=== PATIENT | male | born 1985 | race Caucasian/White ===

== ENCOUNTER 2020-11-06 20:54 | Emergency (ER) | payer SELFPAY ==
[2020-11-06 20:54] VITALS: BP 153/110; PULSE 115; RESP 18; TEMP 36.9; O2SAT 98; BMI 21.7
[2020-11-06] MEDS: lidocaine 1% INJ 20 mL 5 ML INTRADERMA (21:12)
[2020-11-06] MEDS: HYDROcodone-acetaminophen 7.5-325 mg Tablet 1 TAB PO (21:36)
[2020-11-06] MEDS: cephALEXin 500 mg Capsule PO (21:36)
[2020-11-06 21:45] VITALS: BP 126/105; PULSE 94; RESP 16; O2SAT 98
--- NOTE | 2020-11-06 23:33 | W.ED.WOUNDLC ---
HPI - Wound/Laceration General: Chief Complaint: Wound/Laceration Stated Complaint: right forearm lac Time Seen by Provider: 11/06/20 21:05 History of Present Illness: HPI narrative: Patient was using machete to cut down some cedar limbs. And he cut his right arm with the tip of the machete when he leaned forward. Had active bleeding at that time presents ER without active bleeding has tenderness to the right forearm. Onset (ago): minute(s) Extremity Location: Right: arm Place: home Patient tetanus UTD: Yes Context: accidental Associated symptoms: Reports no associated symptoms; Denies chills or fever(s) Treatments prior to arrival: bandage Review of Systems Const: Denies: fever(s) or chills Skin/Breast: Reports: other (Laceration right arm from a machete wound this evening) Psych: Denies: depression Physical Exam Const: COMMON NORMALS: no acute distress Psych: COMMON NORMALS: mental status grossly normal Skin: OTHER: Patient is a 3 inch laceration to his right forearm just 2 inches below with the bend of the elbow on the lateral aspect there is a large blood clot in it. Patient is able to move all extremities fingers in flexion and extension without difficulty. Does have tenderness to the belly of the muscle. Procedures Laceration Laceration 1: Site: upper extremity Side (If applicable): right Size (cm): 8 Description: irregular and clean Depth: involves muscle layer Local Anesthetic: lidocaine 1% Amount of anesthesia used (mL): 5 Pre-repair: wound explored, irrigated extensively and deep structures intact Skin layer closed with: vicryl Size (cm): 3-0 Number of sutures: 15 Technique: simple, interrupted Course Vital Signs: Vital signs: Vital Signs Temperature 98.4 F 11/06/20 20:54 Pulse Rate 94 11/06/20 21:45 Respiratory Rate 16 11/06/20 21:45 Blood Pressure 126/105 11/06/20 21:45 Pulse Oximetry 98 11/06/20 21:45 MDM - Wound/Laceration MDM Narrative: Medical decision making narrative: Patient is able to move all extremities distal aspect of the right forearm without problem good movement of fingers muscle did appear to be cut did have a hematoma in the wound itself but no active bleeding was closed without difficulty left slightly loose to allow for any drainage. Patient was placed on antibiotics was told to follow-up with his primary care to see if he might possibly need a referral if any problems occur. Discharge Plan Discharge Patient Disposition: Home Clinical Impression: Laceration Condition: Stable Prescriptions: New cephalexin 500 mg capsule 500 mg PO Q8H 7 Days Qty: 21 RF: 0 Discharge Orders: Discharge ED (Routine); Ordered 11/06/20 Ordered By: Arvind Mcdaniel Discharge Diet: Usual diet Discharge Activity: Increase activity as tolerated Patient Instructions: Suture Care (ED), Laceration (ED) Activity Restrictions/Additional Instructions: Follow-up with medical provider as directed. Take medications as prescribed. Return to the ER or your medical provider if condition worsens. Please read and understand discharge instructions. If any questions ask please. Get sutures removed in 7 days. Watch for signs and symptoms of infection. Can take Tylenol and/or ibuprofen for discomfort. Can apply ice to help with discomfort. 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
== END 2020-11-06 21:47 | disposition home or self-care (01) ==
LOC: ER 22:56
PROVIDERS: Emergency Provider Nurse Practitioner Family
DX: S51.811A Laceration without foreign body of right forearm, initial encounter (principal); W26.0XXA Contact with knife, initial encounter
CPT/HCPCS: 12004; 99283

== ENCOUNTER 2021-07-18 02:51 | Inpatient (IN) | payer SELFPAY ==
[2021-07-18 03:02] VITALS: BP 160/108; PULSE 116; RESP 18; TEMP 36.7; O2SAT 99; BMI 23.7
--- NOTE | 2021-07-18 03:06 | ED_ITS ---
HPI - Wound/Laceration General: Chief Complaint: Wound/Laceration Stated Complaint: open sore on LT hand Time Seen by Provider: 07/18/21 03:02 Source: patient Mode of arrival: ambulatory Limitations: no limitations History of Present Illness: 36-year-old male states that he had a wound to his left palm over the last 4 to 5 days he states he hit it today and opened it up and he has been having increasing redness and pain he stopped she also had redness going up his arm. He denies any fever he is afebrile here denies any drug use. Denies any worst improving factors denies any drainage. Associated symptoms: Denies chills, fever(s), nausea or vomiting Review of Systems Const: Denies: fever(s), chills, body aches or change in appetite Eyes: Denies: blurry vision or eye discomfort ENMT: Denies: throat pain or dental pain Card: Denies: chest pain Resp: Denies: dyspnea GI: Denies: abdominal pain, nausea, vomiting or diarrhea : Denies: dysuria Musc: Denies: neck pain or back pain Skin/Breast: Reports: erythema and sores Neuro: Denies: headache(s) Psych: Denies: depression Warner/Lymph: Denies: easy bruising All/Imm: Denies: urticaria Physical Exam Const: COMMON NORMALS: patient oriented x3 and healthy appearing HENMT: COMMON NORMALS: normocephalic and atraumatic HEAD & SCALP: normocephalic and atraumatic Eye: COMMON NORMALS: Equal, round and reactive pupils present and EOMs intact bilaterally PUPIL: Yes Equal, round and reactive pupils present Neck/C-Spine: COMMON NORMALS: full ROM and supple Chest: COMMONS NORMALS: normal inspection of the chest and normal palpation of entire chest wall Resp: COMMON NORMALS: normal respiratory effort, No retractions, No use of accessory muscles and clear to auscultation bilaterally AUSCULTATION: clear to auscultation bilaterally Cardio: COMMON NORMALS: regular rate, regular rhythm and No murmurs present (Cardio) RATE: regular rate RHYTHM: regular rhythm GI: COMMON NORMALS: Normal to inspection, nondistended, normoactive bowel sounds present, Soft to palpation, non-tender and no masses PALPATION: Yes Soft to palpation Extremity: COMMON NORMALS: normal to inspection and full ROM Neuro: COMMON NORMALS: patient oriented x3, moves all extremities and no focal motor deficits Psych: COMMON NORMALS: mental status grossly normal, Normal thought process present and cooperative THOUGHT PROCESS: Normal thought process present Skin: NARRATIVE SKIN EXAM: Wound to the left palmar surface with erythema along with streaking up to his armpit Course Vital Signs: Vital signs: Vital Signs Temperature 98.1 F 07/18/21 03:02 Pulse Rate 116 H 07/18/21 03:02 Respiratory Rate 18 07/18/21 03:02 Blood Pressure 160/108 07/18/21 03:02 Pulse Oximetry 99 07/18/21 03:02 MDM - Wound/Laceration Medical Decision Making Patient presents here with cellulitis with a going up his arm. Patient's been seen here by hospitalist Dr. Nina will admit patient given IV antibiotics for cellulitis. Lab Data : 07/18/21 03:15 07/18/21 03:15 Laboratory Results WBC 15.8 10^3/uL (4.0-10.0) H 07/18/21 03:15 RBC 5.05 10^6/uL (4.1-5.3) 07/18/21 03:15 Hgb 15.1 g/dL (11.7-16.6) 07/18/21 03:15 Hct 44.7 % (42.0-52.0) 07/18/21 03:15 MCV 88.5 fl (80-94) 07/18/21 03:15 MCH 29.9 pg (28.0-34.0) 07/18/21 03:15 MCHC 33.8 g/dL (30.0-36.0) 07/18/21 03:15 RDW 13.0 % (12.1-15.1) 07/18/21 03:15 Plt Count 260 10^3/cmm (130-400) 07/18/21 03:15 MPV 10.1 fL (7.4-10.4) 07/18/21 03:15 Neut % (Auto) 75.6 % 07/18/21 03:15 Lymph % (Auto) 14.2 % 07/18/21 03:15 [place] % (Auto) 8.6 % 07/18/21 03:15 Eos % (Auto) 0.8 % 07/18/21 03:15 Baso % (Auto) 0.4 % 07/18/21 03:15 Neut # (Auto) 11.95 10^3/uL (1.8-7.7) H 07/18/21 03:15 Lymph # (Auto) 2.2 10^3/uL (0.8-4.8) 07/18/21 03:15 [place] # (Auto) 1.4 10^3/uL (0.2-0.9) H 07/18/21 03:15 Eos # (Auto) 0.1 10^3/uL (0.0-0.8) 07/18/21 03:15 Baso # (Auto) 0.1 10^3/uL (0.0-0.1) 07/18/21 03:15 Nucleated RBC % (auto) 0 % 07/18/21 03:15 Nucleated RBCs # 0.0 /100WBC 07/18/21 03:15 Sodium 137 mmol/L (136-145) 07/18/21 03:15 Potassium 3.6 mmol/L (3.5-5.1) 07/18/21 03:15 Chloride 100 mmol/L (98-107) 07/18/21 03:15 Carbon Dioxide 27 mmol/L (22-29) 07/18/21 03:15 Anion Gap 13.6 (5-19) 07/18/21 03:15 BUN 16 mg/dL (6-20) 07/18/21 03:15 Creatinine 1.2 mg/dL (0.7-1.2) 07/18/21 03:15 Glucose 105 mg/dL (65-115) 07/18/21 03:15 Calculated Osmolality 286 mOsm/kg (285-295) 07/18/21 03:15 Calcium 9.6 mg/dL (8.5-10.5) 07/18/21 03:15 Total Bilirubin 0.9 mg/dL (0.15-1.2) 07/18/21 03:15 AST 22 U/L (0-40) 07/18/21 03:15 ALT 22 U/L (0-41) 07/18/21 03:15 Alkaline Phosphatase 71 IU/L (40-130) 07/18/21 03:15 Total Protein 7.6 g/dL (6.6-8.7) 07/18/21 03:15 Albumin 4.8 g/dL (3.5-5.2) 07/18/21 03:15 Globulin 2.8 g/dL (1.3-4.6) 07/18/21 03:15 Discharge Plan Discharge Patient Disposition: Admitted As Inpatient Clinical Impression: Cellulitis of left hand Condition: Stable Coding Level of Care Code ED Cost Estimator for Sofía Fwd Exam Comprehensive
--- NOTE | 2021-07-18 03:08 | XRR_ITS ---
PROCEDURE INFORMATION: Exam: XR Left Hand Exam date and time: 07/18/2021 3:08 AM Age: 36 years old Clinical indication: Pain; Mass or lump; Hand; Left; Patient HX: Open sore/wound to proximal aspect of first metacarpal along lateral border. ; Additional info: Injury TECHNIQUE: Imaging protocol: XR Left hand. Views: 3 or more views. COMPARISON: No relevant prior studies available. FINDINGS: Bones/joints: Normal. Soft tissues: Normal. XR/XR hand LT min 3V* [id number] IMPRESSION: No acute findings.
[2021-07-18 03:25] LABS: Basophils # 0.1 10^3/uL (0.0-0.1); Basophils % 0.4 %; Eosinophils # 0.1 10^3/uL (0.0-0.8); Eosinophils % 0.8 %; Hematocrit 44.7 % (42.0-52.0); Hemoglobin 15.1 g/dL (11.7-16.6); Lymphocytes # 2.2 10^3/uL (0.8-4.8); Lymphocytes % 14.2 %; Mean Corpuscular HGB Conc 33.8 g/dL (30.0-36.0); Mean Corpuscular Hemoglobin 29.9 pg (28.0-34.0); Mean Corpuscular Volume 88.5 fl (80-94); Mean Platelet Volume 10.1 fL (7.4-10.4); Monocytes # 1.4 10^3/uL (0.2-0.9); Monocytes % 8.6 %; Neutrophils # 11.95 10^3/uL (1.8-7.7); Neutrophils % 75.6 %; Nucleated Red Blood Cells % 0 %; Platelet Count 260 10^3/cmm (130-400); Red Blood Count 5.05 10^6/uL (4.1-5.3); White Blood Count 15.8 10^3/uL (4.0-10.0)
[2021-07-18] MEDS: tetanus-dipt-pertussis 0.5 mL SDV IM (03:29)
[2021-07-18] MEDS: vancomycin 1,000 MG in sodium chloride 0.9% 250 ML 250 MG IV (03:31)
[2021-07-18 03:46] LABS: Alanine Aminotransferase 22 U/L (0-41); Albumin Level 4.8 g/dL (3.5-5.2); Alkaline Phosphatase 71 IU/L (40-130); Anion Gap 13.6 (5-19); Aspartate Amino Transferase 22 U/L (0-40); Blood Urea Nitrogen 16 mg/dL (6-20); Calcium 9.6 mg/dL (8.5-10.5); Carbon Dioxide 27 mmol/L (22-29); Chloride 100 mmol/L (98-107); Globulin 2.8 g/dL (1.3-4.6); Glomerular Filtration Rate 68.5 mL/min (90-130); Glucose 105 mg/dL (65-115); Osmolality Calculated 286 mOsm/kg (285-295); Potassium 3.6 mmol/L (3.5-5.1); Sodium 137 mmol/L (136-145); Total Bilirubin 0.9 mg/dL (0.15-1.2); Total Protein 7.6 g/dL (6.6-8.7)
--- NOTE | 2021-07-18 03:52 | P.HP_ITS ---
Providers/Chief Complaint Admitting Physician: Linda Nina MD Chief Complaint: open sore on LT hand History of Present Illness Polo Santacruz is a 36 year old male without known medical comorbidities presenting with wound over left wrist, now developing signs of lymphangitis/cellulitis. States he noticed a sore over ulnar aspect of his left hand 2 days ago, not sure how it started, denies any obvious trauma at site. Today while working on a car he thought he may have scratched his hand, and started to notice changes of red streaks moving up his left arm along with increased pain at site of sore. He has a pet dog, does not recall any obvious bite however states dog scratches him often. Denies any h/o IVDU to me, however does appear to have track payan over his left arm. urine drug screen currently pending. No h/o herpes. No fever, chills, blood cx taken and pending. CXR without any noted foreign bodies. No h/o gardening. Review of Systems General: Reports: 10 or more systems reviewed and unremarkable except in HPI and below Const: Denies: fever(s), chills or body aches Eyes: Denies: change in vision, blurry vision or photophobia ENMT: Reports: hoarseness; Denies: throat pain, enlarged tonsils, odynophagia or nasal congestion Card: Denies: chest pain, palpitations, irregular heart rhythm, edema, swelling of feet/ankles, lightheadedness, pre-syncope, dyspnea on exertion or orthopnea Resp: Denies: dyspnea, productive cough, non-productive cough, wheezing, stridor, pain on inspiration, change in phlegm color, hemoptysis or chest congestion GI: Denies: abdominal pain, nausea, vomiting, hematemesis, coffee ground emesis, dysphagia, heartburn, diarrhea, constipation, GI cramping, change in stool character, hematochezia or melena : Denies: flank pain, dysuria, urinary frequency, urinary urgency, urinary hesitancy or hematuria Musc: Denies: neck pain, back pain, extremity pain, joint swelling, joint warmth or deformity Neuro: Denies: headache(s), numbness in extremities, weakness in extremities, sensory changes, difficulty walking, frequent falls, dizziness, vertigo, behavioral changes, Slurred speech present or seizure-like activity Psych: Denies: anxiety, depression, suicidal ideation or homicidal ideation Endo: Denies: polyuria, polydipsia, tired all the time, cold intolerance or hot flashes Warner/Lymph: Denies: easy bruising or easy bleeding Medications/Allergies Allergies Allergy/AdvReac Type Severity Reaction Status Date / Time No Known Allergies Allergy Verified 11/06/20 21:12 Vitals/I&O/Wt Last Vital Signs Temp 98.1 F 07/18/21 03:02 Pulse 116 H 07/18/21 03:02 Resp 18 07/18/21 03:02 BP 160/108 07/18/21 03:02 Pulse Ox 99 07/18/21 03:02 Weight last 48 hrs Weight 81.647 kg Physical Exam Narrative: GEN: Awake, alert and oriented, no acute distress CVS: S1S2 N RS: CTA B/L all areas Abd: Soft, nt/nd , bs+ ACCESS REGISTRAR: no focal neuro deficits Data : 07/18/21 03:15 07/18/21 03:15 Micro: Microbiology 07/18/21 03:32 Blood Culture - Preliminary Blood SPECIMEN COLLECTED 07/18/21 03:15 Blood Culture - Preliminary Blood SPECIMEN COLLECTED Other data: Launch?[employer] [place] [address] XRay Report Signed Patient: Polo Santacruz Unit #: [id number] : 1985 Age/Sex: 36 / M ADM Date: 07/18/21 Loc: ER Room/Bed: Attending Dr: Ordering Provider/Ordering MD: Dakota Bruce MD Date of Service: 07/18/21 Procedure(s): XR hand LT min 3V* [id number] Accession Number(s): [id number] Report Number: [id number] PROCEDURE INFORMATION: Exam: XR Left Hand Exam date and time: 07/18/2021 3:08 AM Age: 36 years old Clinical indication: Pain; Mass or lump; Hand; Left; Patient HX: Open sore/wound to proximal aspect of first metacarpal along lateral border. ; Additional info: Injury TECHNIQUE: Imaging protocol: XR Left hand. Views: 3 or more views. COMPARISON: No relevant prior studies available. FINDINGS: Bones/joints: Normal. Soft tissues: Normal. XR/XR hand LT min 3V* [id number] IMPRESSION: No acute findings. A&P Assessment and plan (1) Cellulitis of left hand: Status: Acute (2) Ascending lymphangitis: Status: Acute Plan Presenting with ulceration over left wrist over ulnar aspect, now with signs of cellulitis/ascending lymphangitis over left arm. Warm, erythematous extremity. Admit to med/surg Started on vancomycin blood cx taken prior to starting abx Additionally will add Zosyn for gram negative coverage given h/o animal scratches over the area. Denies IVDU, however noted track payan over B/L arms. Urine drug screen pending. 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
[2021-07-18] MEDS: nicotine 21 mg Patch 1 PATCH TRANSDERMA (04:00)
--- NOTE | 2021-07-18 04:06 | PC.PHAR ---
Vancomycin is dosed at 1500mg IVPB every 12 hours to produce a predicted trough level of 15.68 (population based pharmacokinetic analysis). A trough level has been ordered from the lab to be obtained before the fourth dose to confirm and adjust iv needed.
[2021-07-18 04:17] VITALS: BP 123/85; PULSE 94; O2SAT 96; BMI 24.0
[2021-07-18] MEDS: piperacillin-tazobactam 3.375 GM in sodium chloride 0.9% (100 ml) 100 ML IV (05:07)
[2021-07-18 07:19] VITALS: BP 151/78; PULSE 100; RESP 18; TEMP 37.2; O2SAT 98
[2021-07-18] MEDS: vancomycin 1,500 MG/300 ML PIGGYBACK 150 MG IV (08:12)
[2021-07-18] MEDS: pantoprazole DR 40 mg Tablet PO (08:12)
[2021-07-18 08:57] LABS: Amphetamines Screen Urine Positive (Negative); Barbiturates Screen Urine Negative (Negative); Benzodiazepines Screen Urine Negative (Negative); Cocaine Screen Urine Negative (Negative); Opiate Screen Urine Positive (Negative); PCP Screen Urine Negative (Negative); THC Screen Urine Positive (Negative)
[2021-07-18 11:37] VITALS: BP 125/75; PULSE 96; RESP 16; TEMP 36.8; O2SAT 98
[2021-07-18 11:49] LABS: Iron 21 ug/dL (59-158); Percent Saturation 9.4 % (20-50); Total Iron Binding Capacity 223 mcg/dl; Unsaturated Iron Binding 202 ug/dL (112-347)
[2021-07-18 12:02] LABS: Estmated Average Glucose 100; Hemoglobin A1C 5.1 % (4.0-6.0)
[2021-07-18] MEDS: piperacillin-tazobactam 3.375 GM in sodium chloride 0.9% (plus) 50 ML IV (12:53)
--- NOTE | 2021-07-18 13:38 | PM.MISC ---
Miscellaneous Note Purpose of Documentation: Short progress note Note: Patient seen today morning laying in bed comfortably. Life partner bedside. Initially patient hesitant to stay in the hospital and wants to leave. Discussed that patient needs IV antibiotics for at least 24 more hours before can be sent home. Follow blood cultures. Continue with vancomycin and Zosyn. MRSA swab. Urine drug screen positive for amphetamines. Repeat a.m. labs. Plan for discharge the next 24 hours likely on oral Augmentin and Levaquin. Care discussed in detail with the patient. He is agreeable to stay.
[2021-07-18 14:56] VITALS: BP 126/90; PULSE 98; RESP 16; TEMP 36.9; O2SAT 96
--- NOTE | 2021-07-18 18:28 | PM.DCS ---
Discharge Providers Date of Admission: 07/18/21 03:48 Date of Discharge: July 18, 2021 Attending Provider at Admission: Linda Nina MD Attending Provider at Discharge: Santiago Gamez MD Diagnoses at Discharge Discharge Diagnosis (1) Cellulitis of left hand: Status: Acute (2) Ascending lymphangitis: Status: Acute Reason for Visit Reason for Visit: open sore on LT hand Brief History: As per HPI Polo Santacruz is a 36 year old male without known medical comorbidities presenting with wound over left wrist, now developing signs of lymphangitis/cellulitis. States he noticed a sore over ulnar aspect of his left hand 2 days ago, not sure how it started, denies any obvious trauma at site. Today while working on a car he thought he may have scratched his hand, and started to notice changes of red streaks moving up his left arm along with increased pain at site of sore. He has a pet dog, does not recall any obvious bite however states dog scratches him often. Denies any h/o IVDU to me, however does appear to have track payan over his left arm. urine drug screen currently pending. No h/o herpes. No fever, chills, blood cx taken and pending. CXR without any noted foreign bodies. No h/o gardening. Hospital Course Hospital Course Patient was admitted to hospital for management of cellulitis. He was started on broad spectrum of Abx. Bcx were taken. Utox was positive for amphetamines, marijuana and opiates. Patient was feeling better by next morning and was insistent on being discharged. He was counseled multiple times to in hospital for atleast 24 to 48 hrs of IV Abx and Bcx follow up but he was adamant of being send home so he is leaving [facility]. Oral antibiotics have been send over for next 7 days. Danger signs have been discussed with him in detail. Physical Exam Narrative: GEN: Awake, alert and oriented, no acute distress CVS: S1S2 N RS: CTA B/L all areas Abd: Soft, nt/nd , bs+ SALES OUTFITTER: no focal neuro deficits Discharge Data Studies Completed and Pending Completed Studies During Hospitalization Category Date Time Status XR hand LT min 3V* [id number] Stat Exams 07/18/21 03:08 Completed Pending at discharge Category Date Time Status Blood Culture Stat Lab 07/18/21 03:32 Results Complete Blood Count w/Auto AM LABS Lab 07/19/21 04:00 Ordered Comprehensive Metabolic Panel AM LABS Lab 07/19/21 04:00 Ordered MRSA by PCR Routine Lab 07/18/21 11:26 Uncollected Vancomycin Trough Timed Lab 07/19/21 20:00 Ordered Radiology Impressions Hand X-Ray 07/18/21 03:08 IMPRESSION: No acute findings. Laboratory Results WBC 15.8 10^3/uL (4.0-10.0) H 07/18/21 03:15 RBC 5.05 10^6/uL (4.1-5.3) 07/18/21 03:15 Hgb 15.1 g/dL (11.7-16.6) 07/18/21 03:15 Hct 44.7 % (42.0-52.0) 07/18/21 03:15 MCV 88.5 fl (80-94) 07/18/21 03:15 MCH 29.9 pg (28.0-34.0) 07/18/21 03:15 MCHC 33.8 g/dL (30.0-36.0) 07/18/21 03:15 RDW 13.0 % (12.1-15.1) 07/18/21 03:15 Plt Count 260 10^3/cmm (130-400) 07/18/21 03:15 MPV 10.1 fL (7.4-10.4) 07/18/21 03:15 Neut % (Auto) 75.6 % 07/18/21 03:15 Lymph % (Auto) 14.2 % 07/18/21 03:15 [place] % (Auto) 8.6 % 07/18/21 03:15 Eos % (Auto) 0.8 % 07/18/21 03:15 Baso % (Auto) 0.4 % 07/18/21 03:15 Neut # (Auto) 11.95 10^3/uL (1.8-7.7) H 07/18/21 03:15 Lymph # (Auto) 2.2 10^3/uL (0.8-4.8) 07/18/21 03:15 [place] # (Auto) 1.4 10^3/uL (0.2-0.9) H 07/18/21 03:15 Eos # (Auto) 0.1 10^3/uL (0.0-0.8) 07/18/21 03:15 Baso # (Auto) 0.1 10^3/uL (0.0-0.1) 07/18/21 03:15 Nucleated RBC % (auto) 0 % 07/18/21 03:15 Nucleated RBCs # 0.0 /100WBC 07/18/21 03:15 Sodium 137 mmol/L (136-145) 07/18/21 03:15 Potassium 3.6 mmol/L (3.5-5.1) 07/18/21 03:15 Chloride 100 mmol/L (98-107) 07/18/21 03:15 Carbon Dioxide 27 mmol/L (22-29) 07/18/21 03:15 Anion Gap 13.6 (5-19) 07/18/21 03:15 BUN 16 mg/dL (6-20) 07/18/21 03:15 Creatinine 1.2 mg/dL (0.7-1.2) 07/18/21 03:15 GFR Calculation 68.5 mL/min (90-130) L 07/18/21 03:15 Glucose 105 mg/dL (65-115) 07/18/21 03:15 Estimat Average Glucose 100 07/18/21 03:15 Hemoglobin A1c 5.1 % (4.0-6.0) 07/18/21 03:15 Calculated Osmolality 286 mOsm/kg (285-295) 07/18/21 03:15 Calcium 9.6 mg/dL (8.5-10.5) 07/18/21 03:15 Iron 21 ug/dL (59-158) L 07/18/21 03:15 TIBC 223 mcg/dl 07/18/21 03:15 % Saturation 9.4 % (20-50) L 07/18/21 03:15 Unsat Iron Binding 202 ug/dL (112-347) 07/18/21 03:15 Total Bilirubin 0.9 mg/dL (0.15-1.2) 07/18/21 03:15 AST 22 U/L (0-40) 07/18/21 03:15 ALT 22 U/L (0-41) 07/18/21 03:15 Alkaline Phosphatase 71 IU/L (40-130) 07/18/21 03:15 Total Protein 7.6 g/dL (6.6-8.7) 07/18/21 03:15 Albumin 4.8 g/dL (3.5-5.2) 07/18/21 03:15 Globulin 2.8 g/dL (1.3-4.6) 07/18/21 03:15 Urine Opiates Screen Positive ng/mL (Negative) H 07/18/21 08:32 Ur Barbiturates Screen Negative ng/mL (Negative) 07/18/21 08:32 Ur Phencyclidine Scrn Negative ng/mL (Negative) 07/18/21 08:32 Ur Amphetamines Screen Positive ng/mL (Negative) H 07/18/21 08:32 U Benzodiazepines Scrn Negative ng/mL (Negative) 07/18/21 08:32 Urine Cocaine Screen Negative ng/mL (Negative) 07/18/21 08:32 U Marijuana (THC) Screen Positive ng/mL (Negative) H 07/18/21 08:32 Vitals Last Vital Signs Temp 98.4 F 07/18/21 14:56 Pulse 98 07/18/21 14:56 Resp 16 07/18/21 14:56 BP 126/90 07/18/21 14:56 Pulse Ox 96 07/18/21 14:56 Discharge Plan Discharge Patient Disposition: Left Against Medical Advice Condition: Stable Prescriptions: New doxycycline hyclate 100 mg capsule 100 mg PO BID 7 Days Qty: 14 0RF Augmentin 875-125 mg tablet 1 tab PO BID Qty: 14 0RF Discharge Orders: Discharge Order (Routine); Ordered 07/18/21 Ordered By: Santiago Gamez Discharge Diet: Regular Discharge Activity: Resume usual activity Patient Instructions: Cellulitis, Doxycycline (By mouth), Amoxicillin/Clavulanate Potassium (By mouth), Lymphangitis (DC), Opioid Safety Discharge Attestations Time Spent in Discharge Care*: greater than 30 min Specific Discharge Activities: educating patient, educating and/or supporting family/caregiver, discussing with material control specialist/social workers/dc planners, documenting/other paperwork and evaluating patient/reviewing data Time Spent in Smoking Cessation: more than 10 minutes Status at Discharge: Cognitive status at discharge: cognitively intact, Behavioral status at discharge: cooperative, Functional status at discharge: independent ambulation, Overall status at discharge: patient is not back to baseline Quality Metrics Clinical Quality Measures [ No reported AMI, CVA or VTE this stay] Coding Level of Care Code Acute Chg FW DC note Diagnoses Cellulitis of left hand L03.114 Ascending lymphangitis I89.1
[2021-07-18 18:56] VITALS: BP 126/90; PULSE 98; RESP 16; TEMP 36.9; O2SAT 96
== END 2021-07-18 18:57 | disposition left against medical advice (07) | DRG 603 ==
LOC: ER 03:52 → MEDSURG 04:03
PROVIDERS: Admitting Provider Student in an Organized Health Care Education/Training Program; Emergency Provider Emergency Medicine; Visit Provider Student in an Organized Health Care Education/Training Program
DX: L03.114 Cellulitis of left upper limb (principal); F15.90 Other stimulant use, unspecified, uncomplicated; F12.90 Cannabis use, unspecified, uncomplicated; Z53.21 Procedure and treatment not carried out due to patient leaving prior to being seen by health care provider
CPT/HCPCS: 73130; 80053; 80306; 83036; 83540; 83550; 85025; 87040; 90471; 90715; 96365; 96366; 96367; 99285; J2543; J3370; J7050

== ENCOUNTER 2021-09-13 18:41 | Emergency (ER) | payer SELFPAY ==
[2021-09-13 18:53] VITALS: BP 134/88; PULSE 77; RESP 20; TEMP 37.1; O2SAT 98; BMI 16.0
[2021-09-13 18:59] VITALS: BP 153/77; PULSE 91; RESP 18; O2SAT 99
--- NOTE | 2021-09-13 19:08 | XRR_ITS ---
PROCEDURE INFORMATION: Exam: XR Left Wrist Exam date and time: 09/13/2021 7:17 PM Age: 36 years old Clinical indication: Pain; Wrist; Left; Additional info: Injury with pain. Limited range of motion in wrist TECHNIQUE: Imaging protocol: XR Left wrist. Views: 3 or more views. COMPARISON: No relevant prior studies available. FINDINGS: Bones/joints: Osseous structures are intact. Negative for fracture. Joint spaces are preserved. Soft tissues: Normal. XR/XR wrist LT min 3V* [id number] IMPRESSION: No acute findings.
--- NOTE | 2021-09-13 19:08 | XRR_ITS ---
PROCEDURE INFORMATION: Exam: XR Left Forearm Exam date and time: 09/13/2021 7:18 PM Age: 36 years old Clinical indication: Pain; Lower or forearm; Left; Patient HX: Lifting heavy object and heard a pop. ; Additional info: Injury with pain. TECHNIQUE: Imaging protocol: XR Left forearm. Views: 2 views. COMPARISON: CR (UP EXM, ) 09/13/2021 7:17 PM FINDINGS: Bones/joints: Osseous structures are intact. Negative for fracture. Soft tissues: Normal. XR/XR forearm LT 2V [id number] IMPRESSION: No acute findings.
--- NOTE | 2021-09-13 19:10 | W.ED.EXTPRO ---
HPI - Extremity Problem General: Chief complaint: Extremity Injury, Upper Stated complaint: left arm injury Time Seen by Provider: 09/13/21 19:00 History of Present Illness: Patient is a 36-year-old male who comes to the ED with left forearm and wrist injury. Injury occurred a couple days ago while at work. 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 When he went to grab the bag and throw it he felt a pop and a pain in his forearm and wrist. Since injury he has had pain and swelling in his wrist and forearm with any movement of the wrist. He rates his pain currently a 8 out of 10. Denies any other other injuries. Associated symptoms: Deny chest pain, fever(s) or rash Review of Systems Const: Denies: fever(s), chills or fatigue Eyes: Denies: change in vision or eye discomfort ENMT: Denies: throat pain, odynophagia, nasal discharge or nasal congestion Card: Denies: chest pain, palpitations, edema, swelling of feet/ankles, dyspnea on exertion or orthopnea Resp: Denies: dyspnea, productive cough or non-productive cough GI: Denies: abdominal pain, nausea, vomiting, diarrhea, constipation or hematochezia : Denies: flank pain, difficulty urinating, dysuria or hematuria Musc: Reports: extremity pain (Left wrist and forearm), extremity swelling (Left wrist and forearm) and limited range of motion (Left wrist); Denies: neck pain or back pain Skin/Breast: Denies: rash or new lesions Neuro: Denies: headache(s), numbness in extremities or weakness in extremities PFS ED PFSH: Medical History No pertinent family history Surgical History No pertinent past surgical history Physical Exam Const: COMMON NORMALS: patient oriented x3 and alert GENERAL APPEARANCE: cooperative HENMT: COMMON NORMALS: normocephalic HEAD & SCALP: normocephalic MOUTH: Normal oral and palatal mucosa present THROAT: posterior oropharynx normal and uvula midline Neck/C-Spine: COMMON NORMALS: supple GENERAL: Yes normal visual inspection Resp: COMMON NORMALS: normal respiratory effort, No retractions, No use of accessory muscles and clear to auscultation bilaterally AUSCULTATION: clear to auscultation bilaterally Cardio: COMMON NORMALS: regular rate, regular rhythm, S1 normal heart sound present, S2 normal heart sound present, No gallops present (Cardio), No clicks present (Cardio), No murmurs present (Cardio) and Peripheral pulses 2+ throughout RATE: regular rate RHYTHM: regular rhythm HEART SOUNDS: S1 normal heart sound present and S2 normal heart sound present PERIPHERAL PULSES: Peripheral pulses 2+ throughout GI: COMMON NORMALS: Normal to inspection, nondistended, normoactive bowel sounds present, Soft to palpation, non-tender and no masses PALPATION: Yes Soft to palpation : COMMON NORMALS: Yes no CVA tenderness BLADDER/KIDNEY EXAM: Yes no CVA tenderness Back/Pelvis: COMMON NORMALS: no CVA tenderness Extremity: NARRATIVE EXTREMITY EXAM: Left lower arm?visible swelling and tenderness over radial aspect of forearm and wrist. Limited range of motion in wrist. Patient endorsed pain when moving fingers to make a fist. Neurovascular intact distally. Neuro: COMMON NORMALS: patient oriented x3 and moves all extremities SENSORIUM/ORIENTATION: Yes alert Skin: GENERAL SKIN EXAM: dry skin Course Vital Signs: Vital signs: Vital Signs Temperature 98.7 F 09/13/21 18:53 Pulse Rate 95 09/13/21 20:49 Respiratory Rate 18 09/13/21 18:59 Blood Pressure 140/89 09/13/21 20:49 Pulse Oximetry 98 09/13/21 20:49 MDM - Extremity (Nontraumatic) Medical Decision Making Patient is a 36-year-old male comes to the ED with left wrist and forearm injury. Patient was lifting some bags at his job and when he went to throw 1 he felt a pain in his left forearm and left wrist. Injury occurred several days ago. Vitals are stable. Patient does have some visible tenderness and swelling over the radial aspect of forearm and wrist. No visible deformity seen. Neurovascular tact. X-ray of right forearm and right wrist showed no acute fractures or findings. Patient diagnosed with a left forearm strain and was discharged home with a Velcro wrist splint and Celebrex for pain. He was told to follow-up with his PCP in the next week for reevaluation. Return to ED precautions given. Patient is tender with plan. Lab Data Radiology Impressions Forearm X-Ray 09/13/21 19:08 IMPRESSION: No acute findings. Wrist X-Ray 09/13/21 19:08 IMPRESSION: No acute findings. Discharge Plan Discharge Patient Disposition: Home Clinical Impression: Muscle strain of left forearm Qualifiers: Encounter type: initial encounter Qualified Code(s): S56.912A - Strain of unspecified muscles, fascia and tendons at forearm level, left arm, initial encounter Condition: Stable Prescriptions: New Celebrex 100 mg capsule 100 mg PO BID PRN (Reason: pain) Qty: 20 0RF No Action Augmentin 875-125 mg tablet 1 tab PO BID Qty: 14 0RF Discharge Orders: Discharge ED (Routine); Ordered 09/13/21 Ordered By: Justino Brown Discharge Diet: Regular Discharge Activity: Increase activity as tolerated Patient Instructions: Muscle Strain (DC) Activity Restrictions/Additional Instructions: Follow-up with medical provider as directed in the next 7 to 10 days for reevaluation. Wear wrist brace for the next several days to allow for healing. Take medications as prescribed. Apply cold pack on left forearm and wrist elbow symptoms. Return to the ER or your medical provider if condition worsens. Please read and understand discharge instructions. Thank you for choosing [facility] for your healthcare needs today. Please realize this is an emergency room and that we are providing you with a medical screening exam and this may not be complete and all inclusive of all the testing and or work up that you may need to determine your ailment or severity of your illness. It is very important that you follow up as instructed or that you return to the Emergency Department should you have concerns or if your condition changes or worsens in any way. Stand Alone Forms: Work/School Release Coding Level of Care Code ED Commercial Loan Officer for [place] Exam Comprehensive
[2021-09-13] MEDS: HYDROcodone-acetaminophen 7.5-325 mg Tablet 1 TAB PO (19:14)
[2021-09-13 20:49] VITALS: BP 140/89; PULSE 95; O2SAT 98
== END 2021-09-13 20:51 | disposition home or self-care (01) ==
PROVIDERS: Emergency Provider Physician Assistant
DX: S56.912A Strain of unspecified muscles, fascia and tendons at forearm level, left arm, initial encounter (principal); X58.XXXA Exposure to other specified factors, initial encounter
CPT/HCPCS: 73090; 73110; 99283

== ENCOUNTER 2022-04-06 20:02 | Emergency (ER) | payer SELFPAY ==
[2022-04-06 20:08] VITALS: BP 111/70; PULSE 90; RESP 18; TEMP 36.6; O2SAT 98; BMI 22.3
== END 2022-04-06 21:33 | disposition left against medical advice (07) ==
PROVIDERS: Emergency Provider Family Medicine
DX: Z53.21 Procedure and treatment not carried out due to patient leaving prior to being seen by health care provider (principal)
CPT/HCPCS: 99283

== ENCOUNTER → 2022-04-17 16:05 | Outpatient (BNVA) | payer SELFPAY | PROVIDERS: Visit Provider Nurse Practitioner Family | DX: Z20.822 Contact with and (suspected) exposure to COVID-19 (principal); Z56.89 Other problems related to employment | CPT/HCPCS: 87426 ==

== ENCOUNTER 2024-06-25 09:53 | Emergency (ER) | payer SELFPAY ==
[2024-06-25 10:23] VITALS: BP 128/74; PULSE 99; RESP 16; TEMP 36.7; O2SAT 99; BMI 23.1
--- NOTE | 2024-06-25 10:42 | ED_ITS ---
HPI - Back Pain/Injury General: Chief Complaint: Back Pain/Injury Stated Complaint: back pain Time Seen by Provider: 06/25/24 10:17 History of Present Illness: 39-year-old male presents emergency room complaint of back pain. Patient has back pain on the left paraspinal region. No radiation to the legs. No weakness numbness or tingling in legs no difficulty with bowel or bladder. Movement twisting turning and bending aggravates it sitting still relieves that he is tried a few [id number] medications with minimal relief no specific trauma that he can recall. Associated symptoms: Deny abdominal pain, chills, dysuria, fever(s) or urinary urgency Related Data Previous Rx's Medication Instructions Recorded diclofenac sodium 75 mg 75 mg PO Q12H PRN pain #20 tabs 06/25/24 tablet,delayed release prednisone 20 mg tablet 20 mg PO TID #15 tabs 06/25/24 tizanidine 4 mg tablet 4 mg PO Q6H PRN muscle spasticity 06/25/24 #20 tabs Allergies Allergy/AdvReac Type Severity Reaction Status Date / Time No Known Allergies Allergy Verified 04/15/22 10:39 Review of Systems Const: Denies: fever(s) or chills Card: Denies: chest pain Resp: Denies: dyspnea GI: Denies: abdominal pain : Denies: dysuria, urinary frequency or urinary urgency Musc: Reports: back pain; Denies: neck pain Skin/Breast: Denies: rash [facility] ED PFSH: Medical History No pertinent family history Surgical History No pertinent past surgical history Physical Exam Const: GENERAL APPEARANCE: cooperative ORIENTATION/CONSCIOUSNESS: Yes awake, Yes oriented to person, Yes oriented to place and Yes oriented to time HENMT: COMMON NORMALS: normocephalic, atraumatic and hearing grossly normal bilaterally HEAD & SCALP: normocephalic and atraumatic Resp: COMMON NORMALS: normal respiratory effort, No retractions, No use of accessory muscles and clear to auscultation bilaterally AUSCULTATION: clear to auscultation bilaterally Cardio: COMMON NORMALS: regular rate, regular rhythm and No murmurs present (Cardio) RATE: regular rate RHYTHM: regular rhythm GI: COMMON NORMALS: Soft to palpation and No hepatosplenomegaly present AUSCULTATION: Yes normoactive bowel sounds PALPATION: Yes Soft to palpation, No Tenderness to palpation present (GI), No Guarding due to palpation present (GI) and Yes No hepatosplenomegaly present Extremity: COMMON NORMALS: normal to inspection, capillary refill normal, no clubbing, cyanosis or edema, no calf tenderness and no pedal edema Neuro: SENSORIUM/ORIENTATION: Yes oriented to person, Yes oriented to place and Yes oriented to time OTHER: Lower extremity neurovascularly intact sensation normal straight leg raising negative deep tendon reflexes +2 for dorsum plantarflexion strength 5 of 5. Skin: COMMON NORMALS: no rashes or lesions noted GENERAL SKIN EXAM: no rashes or lesions noted Course Vital Signs: Vital signs: Vital Signs Temperature 98.1 F 06/25/24 10:23 Pulse Rate 79 06/25/24 12:28 Respiratory Rate 17 06/25/24 12:26 Blood Pressure 127/83 06/25/24 12:28 Pulse Oximetry 100 06/25/24 12:28 Oxygen Delivery Me thod Room Air 06/25/24 10:56 MDM - Back Pain/Injury Medical Decision Making Patient has chronic musculoskeletal pain with a precipitating nontraumatic event. Discussed that generally we do not do imaging because it is not helpful to decision making. Patient started on medications had some relief here after the morphine. Will discharge patient home on prednisone taper diclofenac and tizanidine. Labs Laboratory Results Urine Color Yellow (Yellow) 06/25/24 11:34 Urine Appearance Clear (CLEAR) 06/25/24 11:34 Urine pH 6.0 (5-7) 06/25/24 11:34 Ur Specific [place] 1.026 (1.005-1.030) 06/25/24 11:34 Urine Protein Trace (Negative) A 06/25/24 11:34 Urine Glucose (UA) Negative (Normal) 06/25/24 11:34 Urine Ketones Trace (Negative) 06/25/24 11:34 Urine Blood Negative (Negative) 06/25/24 11:34 Urine Nitrate Negative (Negative) 06/25/24 11:34 Urine Bilirubin Negative (Negative) 06/25/24 11:34 Urine Urobilinogen 1.0 mg/dL (Negative) 06/25/24 11:34 Ur Leukocyte Esterase Negative (Negative) 06/25/24 11:34 Urine RBC 0-2 /hpf (0-2) 06/25/24 11:34 Urine WBC 0-5 /hpf (0-5) 06/25/24 11:34 Ur Squamous Epith Cells 0-5 /hpf (0-5) 06/25/24 11:34 Amorphous Sediment Not Reportable 06/25/24 11:34 Urine Bacteria None seen /hpf (NONE) 06/25/24 11:34 Hyaline Casts 9.51 /lpf 06/25/24 11:34 No radiology studies performed this visit Discharge Plan Discharge Patient Disposition: Home Clinical Impression: Strain of lumbar region Condition: Stable Prescriptions: New tizanidine 4 mg tablet 4 mg PO Q6H PRN (Reason: muscle spasticity) Qty: 20 0RF Rx Instructions: do not exceed 3 doses per 24 hrs prednisone 20 mg tablet 20 mg PO TID Qty: 15 0RF Rx Instructions: 1 p.o. 3 times daily x3 days, 1 p.o. twice daily x2 days, 1 p.o. daily x2 days diclofenac sodium 75 mg tablet,delayed release (DR/EC) 75 mg PO Q12H PRN (Reason: pain) Qty: 20 0RF Discharge Orders: Discharge ED (Routine); Ordered 06/25/24 Ordered By: Brendan Loomis Patient Instructions: Opioid Safety, Pain Management Activity Restrictions/Additional Instructions: Thank you for choosing [facility] for your healthcare needs today. It is very important that you follow up as instructed or that you return to the Emergency Department should you have concerns or if your condition changes or worsens in any way. You are seen in the emergency room for back pain. There is no signs of radicular back pain or nerve impingement on your exam recommend steroid taper diclofenac and tizanidine as needed. Begin the steroid taper tomorrow. Follow- up with your primary care doctor if not improving. Coding Level of Care Code ED Lead Programmer for [place]
[2024-06-25] MEDS: ketorolac 30 mg/mL INJ IVP (10:50)
[2024-06-25] MEDS: orphenadrine 30 mg/mL Inj 2 mL 60 MG IVP (10:51)
[2024-06-25] MEDS: dexamethasone 10 mg/mL INJ IVP (10:51)
[2024-06-25 10:56] VITALS: BP 128/74; PULSE 82; RESP 16; O2SAT 98
[2024-06-25 11:48] LABS: Bilirubin Urine Negative (Negative); Blood Urine Negative (Negative); Glucose Urine UA Negative (Normal); Ketones Urine Trace (Negative); Leukocyte Esterase Urine Negative (Negative); Nitrate Urine Negative (Negative); Protein Urine Trace (Negative); Specific Gravity, Urine 1.026 (1.005-1.030); Urine Appearance Clear (CLEAR); Urine Color Yellow (Yellow)
[2024-06-25 11:54] LABS: Add Urine Microscopic? YES; Bacteria Urine None Seen /hpf; Hyaline Casts Urine 9.51 /lpf; RBC Urine 0-2 /hpf (0-2); Squamous Epithelial Cell Urine 0-5 /hpf (0-5); WBC Urine 0-5 /hpf (0-5)
[2024-06-25 12:24] LABS: Add Urine Culture? No
[2024-06-25 12:26] VITALS: RESP 17
[2024-06-25] MEDS: morphine 4 mg/mL SDV 1 mL IVP (12:26)
[2024-06-25 12:28] VITALS: BP 127/83; PULSE 79; O2SAT 100
== END 2024-06-25 12:53 | disposition home or self-care (01) ==
PROVIDERS: Emergency Provider Family Medicine
DX: S39.012A Strain of muscle, fascia and tendon of lower back, initial encounter (principal); X58.XXXA Exposure to other specified factors, initial encounter
CPT/HCPCS: 81001; 96374; 96375; 99284; J1100; J1885; J2270; J2360